=== PATIENT | male | born 2000 | race African-American/Black ===

== ENCOUNTER 2019-11-02 02:40 | Inpatient (IN) | payer OTHER ==
[~2019-11-02] VITALS: Ht 175.3 cm; Wt 99.8 kg
[2019-11-02] MEDS ORDERED: ONDANSETRON HCL 4MG/2ML INJ IV STA (06:34)
[2019-11-02] MEDS ORDERED: SODIUM CHLORIDE 0.9% 1,000 ML IV ONE ×2 (06:34→13:32)
[2019-11-02] MEDS ORDERED: FAMOTIDINE 20MG/2ML VIAL IV STA (06:34)
[2019-11-02 06:54] LABS: HEMOGLOBIN. 16.5 g/dL (14.0-18.0); MEAN CORPUSCULAR HEMOGLOBIN 29.6 pg (28.0-32.0); MEAN CORPUSCULAR VOLUME 86.1 fL (80.0-94.0); MEAN PLATELET VOLUME 8.2 fl (7.4-10.4); PLATELET 299 x1000/uL (130-400); RED BLOOD CELL COUNT 5.57 mill/uL (4.7-6.1); RED CELL DISTRIBUTION WIDTH 13.9 % (11.6-14.6)
[2019-11-02 07:01] LABS: PROTHROMBIN TIME 10.6 sec (9.6-11.0)
[2019-11-02 07:09] LABS: CHLORIDE 103 mEq/L (98-107)
[2019-11-02 07:23] LABS: PLATELET ESTIMATE NORMAL
[2019-11-02] MEDS ORDERED: SODIUM CHLORIDE 0.9% 1000ML BAG (SEPSIS BOLUS) IV ONE (07:45)
[2019-11-02 08:35] LABS: CLARITY URINE CLEAR (CLEAR); COLOR URINE YELLOW (YELLOW); KETONES URINE NEGATIVE (NEGATIVE); LEUKOCYTE ESTERASE URINE NEGATIVE (NEGATIVE); NITRITE URINE NEGATIVE (NEGATIVE); OCCULT BLOOD URINE NEGATIVE (NEGATIVE); PH URINE 7.5 (4.5-8.0); PROTEIN URINE NEGATIVE (NEGATIVE); SPECIFIC GRAVITY URINE 1.028 (1.005-1.030); UROBILINOGEN URINE 0.2 E.U./dL (0.2-1.0)
[2019-11-02] MEDS ORDERED: LEVOFLOXACIN 750MG PREMIX 150 ML IV ONE (13:45)
[2019-11-02] MEDS ORDERED: METRONIDAZOLE 500 MG PREMIX 100 ML IV ONE (13:45)
[2019-11-02 18:01] LABS: CHLORIDE 111 mEq/L (98-107)
[2019-11-02] MEDS ORDERED: IPRATROPIUM/ALBUTEROL 0.5-3(2.5)MG/3ML NEB HHN PRN (20:00)
[2019-11-02] MEDS ORDERED: HYDROCODONE/ACETAMINOPHEN 5/325MG TABLET PO PRN (20:00)
[2019-11-02] MEDS ORDERED: ACETAMINOPHEN 325MG TABLET PO PRN (20:00)
[2019-11-02] MEDS ORDERED: CLONIDINE 0.1MG TABLET PO PRN (20:00)
[2019-11-02] MEDS ORDERED: GUAIFENESIN 200MG/10ML SUGAR FREE UDC PO PRN (20:00)
[2019-11-02] MEDS ORDERED: LORAZEPAM 0.5MG TABLET PO PRN (20:00)
[2019-11-02] MEDS ORDERED: ONDANSETRON HCL 4MG/2ML INJ IV PRN (20:00)
[2019-11-02 22:30] VITALS: BP 125/81
[2019-11-02 22:45] VITALS: BP 125/81
[2019-11-03 04:00] VITALS: BP 100/50
[2019-11-03 06:34] LABS: CHLORIDE 110 mEq/L (98-107)
[2019-11-03 06:52] LABS: BASOPHILS % 0.2 % (0.0-2.0); EOSINOPHILS % 0.6 % (0.0-5.0); HEMATOCRIT. 44.3 % (42.0-52.0); HEMOGLOBIN. 15.1 g/dL (14.0-18.0); LYMPHOCYTES % 34.1 % (20.0-50.0); MEAN CORPUSCULAR HEMOGLOBIN 29.4 pg (28.0-32.0); MEAN CORPUSCULAR VOLUME 86.1 fL (80.0-94.0); MEAN PLATELET VOLUME 8.2 fl (7.4-10.4); MONOCYTES % 11.8 % (2.0-8.0); NEUTROPHILS % 53.3 % (40.0-76.0); PLATELET 228 x1000/uL (130-400); RED BLOOD CELL COUNT 5.15 mill/uL (4.7-6.1); RED CELL DISTRIBUTION WIDTH 14.2 % (11.6-14.6)
[2019-11-03 07:01] LABS: HEPATITIS B SURFACE ANTIGEN NEGATIVE
[2019-11-03 07:31] LABS: HEPATITIS A AB IGM NEGATIVE (NEGATIVE)
[2019-11-03 08:00] VITALS: BP 127/79
[2019-11-03 10:35] VITALS: BP 127/79
[2019-11-05 06:12] LABS: HIV SCREEN 4G Non Reactive (Non Reactive)
== END 2019-11-03 11:45 | disposition home or self-care (01) | DRG 392 ==
LOC: ER 02:40 → EDBEDREQ 16:38 → EDBEDREQTM 16:45 → ENRESERV 21:49 → 5WST 22:27
PROVIDERS: ADMIT Internal Medicine; ATTEND Internal Medicine
DX: A08.4 Viral intestinal infection, unspecified (principal); E86.0 Dehydration; A08.39 Other viral enteritis; Z79.899 Other long term (current) drug therapy
CPT/HCPCS: 36415; 71045; 74176; 80048; 80053; 80076; 81003; 82248; 83605; 84145; 84484; 85025; 86705; 86709; 86803; 87340; 87389; 87804; 93005; 96374; 99285; J1956; J2405; J3490; J7030